=== PATIENT | female | born 1950 | race Caucasian/White ===

== ENCOUNTER 2023-12-20 09:59 | Observation (INO) ==
[~2023-12-20 09:59] MED LIST: Metoclopramide 5 MG/ML VIAL (10 mg) IV PRN; NS 0.45% 1000 ml BAG 1,000 ML IV SCH; Naloxone 0.4 mg VIAL 0.4 mg/ml 1 ml VIAL IV PRN; Ondansetron 4 mg VIAL 2 MG/ML 2 ml VIAL IV PRN; fentaNYL 100 mcg/2 ml 50 MCG/ML VIAL IV PRN
[2023-12-20 10:53] LABS: Rapid COVID-19 Molecular Undetected (Undetected)
[2023-12-20] MEDS ORDERED: Scopolamine 1 mg/72hr PATCH ONE (11:06)
[2023-12-20] MEDS ORDERED: ceFAZolin 2 GM PREMIX 2 GM/50 ML BAG ONE (11:06)
[2023-12-20] MEDS ORDERED: Tranexamic Acid 1 GM/100ML BAG 2,000 MG/200 ML BAG IV ONE (11:51)
[2023-12-20] MEDS ORDERED: Midazolam 2 mg/2 ml VIAL 1 mg/ml 2 ml VIAL (2 mg) ONE ×2 (12:18→12:19)
[2023-12-20] MEDS ORDERED: fentaNYL 100 mcg/2 ml 50 MCG/ML VIAL ONE (12:18)
[2023-12-20] MEDS ORDERED: Dexamethasone IV 4 MG/ML VIAL 1 ml VIAL ONE (12:19)
[2023-12-20] MEDS ORDERED: Propofol 10 MG/ML 20 ML BTL ONE (12:19)
[2023-12-20] MEDS ORDERED: ROPIVACAINE 5 MG/ML 30 ML BTL (0.5%) ONE ×2 (12:19→13:15)
[2023-12-20] MEDS ORDERED: Lidocaine 2% PF 5 ML VIAL ONE (12:19)
[2023-12-20] MEDS ORDERED: Ondansetron 4 mg VIAL 2 MG/ML 2 ml VIAL IV PRN (14:29)
[2023-12-20] MEDS ORDERED: Morphine 2 MG/ML SYRINGE IV PRN (14:29)
[2023-12-20] MEDS ORDERED: Magnesium Hydroxide LIQ 30 ML UDC PO PRN (14:29)
[2023-12-20] MEDS ORDERED: Lactulose 30 ml UDC PO PRN (14:29)
[2023-12-20] MEDS ORDERED: Calcium Carb (TUMS) 500 mg CHEW TAB PO PRN (14:29)
[2023-12-20] MEDS ORDERED: Ondansetron ODT 4 mg TAB 4 MG TAB PO PRN (14:29)
[2023-12-20] MEDS: Acetaminophen IV 1 GM/100ML 1,000 MG/100 ML BAG IV ONE (15:59)
[2023-12-20] MEDS: Buffered Lidocaine 1% SYRIN 1 ml INTRADERM ONE (15:59)
[2023-12-20] MEDS: Scopolamine 1 mg/72hr PATCH TRANSDERM ONE (15:59)
[2023-12-20] MEDS: Lactated Ringers 1000 ml BAG 1,000 ML IV SCH ×2 (15:59→17:10)
[2023-12-20] MEDS: ceFAZolin 2 GM PREMIX 2 GM/50 ML BAG IV SCH (22:39)
[2023-12-20] MEDS: Magnesium Hydroxide LIQ 30 ML UDC PO SCH (23:39)
[2023-12-21 06:18] LABS: Hematocrit 33.4 % (35-45); Hemoglobin 11.2 g/dL (11.5-14.3); Mean Platelet Volume 7.4 fL (7.5-11.2); Platelet Count 180 10^3/uL (150-450)
[2023-12-21 06:35] LABS: Calcium 8.8 mg/dL (8.6-10.3); Creatinine, Serum 0.7 mg/dL (0.51-0.95); Potassium 4.2 mmol/L (3.5-5.0); eGFR CKD-EPI 91.3 (>60)
[2023-12-21] MEDS: Vitamin THERAPEUTIC TAB PO SCH (08:18)
[2023-12-21 10:41] VITALS: BP 96/57
== END 2023-12-21 14:17 | disposition home or self-care (01) ==
LOC: OR 09:59 → SSU 09:59
PROVIDERS: ADMIT Orthopaedic Surgery Adult Reconstructive Orthopaedic Surgery; ATTEND Orthopaedic Surgery Adult Reconstructive Orthopaedic Surgery

== ENCOUNTER 2024-05-13 11:40 | Observation (INO) ==
[~2024-05-13 11:40] MED LIST changes: -fentaNYL 100 mcg/2 ml 50 MCG/ML VIAL IV PRN
[2024-05-13] MEDS ORDERED: Midazolam 2 mg/2 ml VIAL 1 mg/ml 2 ml VIAL (2 mg) ONE ×2 (11:41→11:47)
[2024-05-13] MEDS ORDERED: Lidocaine 2% PF 5 ML VIAL ONE (11:41)
[2024-05-13] MEDS ORDERED: fentaNYL 100 mcg/2 ml 50 MCG/ML VIAL ONE ×3 (11:41→17:24)
[2024-05-13] MEDS ORDERED: Dexamethasone IV 4 MG/ML VIAL 1 ml VIAL ONE ×2 (11:47→14:59)
[2024-05-13] MEDS ORDERED: ROPIVACAINE 5 MG/ML 30 ML BTL (0.5%) ONE ×2 (11:48→13:21)
[2024-05-13] MEDS ORDERED: Ondansetron 4 mg VIAL 2 MG/ML 2 ml VIAL ONE ×2 (12:05→15:00)
[2024-05-13] MEDS ORDERED: ceFAZolin 2 GM PREMIX 2 GM/50 ML BAG ONE (12:10)
[2024-05-13] MEDS ORDERED: Tranexamic Acid 1 GM/100ML BAG 2,000 MG/200 ML BAG IV ONE (12:10)
[2024-05-13 12:28] LABS: Rapid COVID-19 Molecular Undetected (Undetected)
[2024-05-13] MEDS ORDERED: Lactulose 30 ml UDC PO PRN (13:41)
[2024-05-13] MEDS ORDERED: Magnesium Hydroxide LIQ 30 ML UDC PO PRN (13:41)
[2024-05-13] MEDS ORDERED: Calcium Carb (TUMS) 500 mg CHEW TAB PO PRN (13:41)
[2024-05-13] MEDS ORDERED: Morphine 2 MG/ML SYRINGE IV PRN (13:41)
[2024-05-13] MEDS ORDERED: Ondansetron 4 mg VIAL 2 MG/ML 2 ml VIAL IV PRN (13:41)
[2024-05-13] MEDS ORDERED: Ondansetron ODT 4 mg TAB 4 MG TAB PO PRN (13:41)
[2024-05-13] MEDS ORDERED: Metoclopramide 5 MG/ML VIAL (10 mg) ONE (15:00)
[2024-05-13] MEDS: fentaNYL 100 mcg/2 ml 50 MCG/ML VIAL IV PRN (17:26)
[2024-05-13] MEDS: Buffered Lidocaine 1% SYRIN 1 ml INTRADERM ONE (18:26)
[2024-05-13] MEDS: Acetaminophen IV 1 GM/100ML 1,000 MG/100 ML BAG IV ONE (18:26)
[2024-05-13] MEDS: Scopolamine 1 mg/72hr PATCH TRANSDERM ONE (18:26)
[2024-05-13] MEDS: Lactated Ringers 1000 ml BAG 1,000 ML IV SCH ×2 (18:27→18:54)
[2024-05-13] MEDS: ceFAZolin 2 GM PREMIX 2 GM/50 ML BAG IV SCH ×2 (18:28→22:19)
[2024-05-13] MEDS: Magnesium Hydroxide LIQ 30 ML UDC PO SCH (20:34)
[2024-05-14 06:51] LABS: Hematocrit 29.1 % (35-45); Hemoglobin 10.1 g/dL (11.5-14.3); Mean Platelet Volume 7.6 fL (7.5-11.2); Platelet Count 147 10^3/uL (150-450)
[2024-05-14 07:21] LABS: Calcium 8.6 mg/dL (8.6-10.3); Creatinine, Serum 0.91 mg/dL (0.51-0.95); Potassium 4.3 mmol/L (3.5-5.0); eGFR CKD-EPI 66.2 (>60)
[2024-05-14] MEDS: Enoxaparin 40 MG/0.4 ML SYR SUBCUT SCH (07:43)
[2024-05-14] MEDS: Vitamin THERAPEUTIC TAB PO SCH (07:43)
[2024-05-14 09:53] VITALS: BP 119/76
== END 2024-05-14 14:37 | disposition home or self-care (01) ==
LOC: SSU 11:40 → OR 11:40
PROVIDERS: ADMIT Orthopaedic Surgery Adult Reconstructive Orthopaedic Surgery; ATTEND Orthopaedic Surgery Adult Reconstructive Orthopaedic Surgery